=== PATIENT | male | born 1970 | race Caucasian/White ===

== ENCOUNTER 2019-12-16 22:03 | Emergency (ER) | payer SELFPAY ==
[~2019-12-16] VITALS: Ht 170.2 cm; Wt 79.4 kg
[2019-12-16 22:07] VITALS: BP_SYST 184
--- NOTE | 2019-12-16 22:33 | NUR ---
Pt c/o constant abdominal pain with N/V since tonight. No active vomiting noted at this time.
--- NOTE | 2019-12-16 22:33 | NUR ---
[facility] Side rails up. Report given to Harley TAYLOR.
--- NOTE | 2019-12-16 22:34 | NUR ---
ER at bedside examining patient.
[2019-12-16] MEDS ORDERED: NACL 0.9% 1,000 ML IV ONE (22:38)
[2019-12-16] MEDS ORDERED: ONDANSETRON HCL 4 MG/2 ML VIAL IVP ONE (22:45)
[2019-12-16] MEDS ORDERED: MORPHINE 4 MG/ML INJ. SYRINGE IVP ONE (22:45)
[2019-12-16 23:09] LABS: BASOPHILS # (AUTO) 0.1 K/uL (0.0-0.2); BASOPHILS % (AUTO) 0.8 % (0.0-2.0); EOSINOPHILS % (AUTO) 0.2 % (0.0-4.0); HEMATOCRIT 37.4 % (36-54); HEMOGLOBIN 12.3 g/dL (14.0-18.0); LYMPHOCYTES # (AUTO) 1.3 K/uL (1.0-5.5); LYMPHOCYTES % (AUTO) 8.2 % (20.5-51.5); MEAN CORPUSCULAR HEMOGLOBIN 24 pg (27-31); MEAN CORPUSCULAR HGB CONC 33 % (32-36); MEAN CORPUSCULAR VOLUME 74 fL (79.0-98.0); MONOCYTES % (AUTO) 6.2 % (1.7-9.3); NEUTROPHILS % (AUTO) 84.6 % (40.0-70.0); PLATELET COUNT (AUTO) 527 K/uL (130-430); RED CELL DISTRIBUTION WIDTH 17.8 % (9.0-15.0); WHITE BLOOD COUNT (AUTO) 15.4 K/uL (4.8-10.8)
[2019-12-16] MEDS ORDERED: FAMOTIDINE PF 20 MG/2 ML VIAL IVP ONE (23:15)
[2019-12-16 23:22] LABS: CALCIUM 8.6 mg/dL (8.4-11.0); CREATININE 1.02 mg/dL (0.55-1.30); POTASSIUM 3.2 mmol/L (3.5-5.1)
[2019-12-16 23:26] LABS: ALBUMIN 3.4 g/dL (3.4-4.8); TOTAL BILIRUBIN 0.4 mg/dL (0.0-1.0)
--- NOTE | 2019-12-17 | NUR ---
Pt refuses IV and unable to provide urine. Dr. Banks notified.
--- NOTE | 2019-12-17 00:30 | NUR ---
Pt yells out stating he has leg cramps. Pt refuses IV and medications.
--- NOTE | 2019-12-17 01:25 | NUR ---
Pt to CT in stable condition.
--- NOTE | 2019-12-17 01:30 | NUR ---
Pt returns from CT. No needs verblized. Continues to refuse IV.
[2019-12-17 02:35] VITALS: BP_SYST 164
--- NOTE | 2019-12-17 02:35 | NUR ---
Patient given written and verbal discharge instructions and verbalizes understanding. ER MD discussed with patient the results and treatment provided. Patient in stable condition. ID arm band removed. No Rx given. Patient educated on pain management and to follow up with PMD. Pain Scale 0/10. Opportunity for questions provided and answered. Medication side effect fact sheet provided.
== END 2019-12-17 02:35 | disposition home or self-care (01) ==
LOC: SED 22:03
DX: R10.84 Generalized abdominal pain (principal); Z71.6 Tobacco abuse counseling
CPT/HCPCS: 36415; 74176; 80053; 83690; 85025; 99284; G0482; J2270; J2405; J3490